=== PATIENT | female | born 1950 | race Caucasian/White ===

== ENCOUNTER 2023-08-23 10:35 | Emergency (ER) | payer BC ==
[~2023-08-23] VITALS: Ht 167.6 cm; Wt 80.6 kg
[2023-08-23] MEDS ORDERED: MONT-5 PO (10:52)
[2023-08-23] MEDS ORDERED: PRAV20TA2 PO (10:52)
[2023-08-23] MEDS ORDERED: ELIQ5TAB PO (10:52)
[2023-08-23] MEDS ORDERED: TRAM50TA2 PO (10:52)
[2023-08-23] MEDS ORDERED: RA N1TAB PO (10:52)
[2023-08-23] MEDS ORDERED: CYCL-707 PO (10:52)
[2023-08-23] MEDS ORDERED: ISOS20TA53 PO (10:52)
[2023-08-23] MEDS ORDERED: PROTPAK PO (10:52)
[2023-08-23 12:53] VITALS: BP 132/63; TEMP 97.8; O2SAT 98
== END 2023-08-23 12:56 | disposition home or self-care (01) ==
LOC: M ED 11:50
DX: S30.0XXA Contusion of lower back and pelvis, initial encounter (principal); W10.8XXA Fall (on) (from) other stairs and steps, initial encounter; K21.9 Gastro-esophageal reflux disease without esophagitis; Z86.79 Personal history of other diseases of the circulatory system; Z79.01 Long term (current) use of anticoagulants; Z79.891 Long term (current) use of opiate analgesic; Z79.899 Other long term (current) drug therapy; Y92.009 Unspecified place in unspecified non-institutional (private) residence as the place of occurrence of the external cause; Y93.9 Activity, unspecified; Y99.9 Unspecified external cause status